=== PATIENT | female | born 1990 | race Hispanic/Latino ===

== ENCOUNTER 2018-05-24 12:47 | Emergency (ER) | payer OTHER ==
[2018-05-24 13:23] VITALS: RESP 18; TEMP 98.7; O2SAT 99
[2018-05-24 13:33] VITALS: BMI 28.3
--- NOTE | 2018-05-24 13:42 | ED PDOC ---
Arrival/HPI - General Historian: Patient - History of Present Illness Narrative History of Present Illness (Text): 05/24/18 13:32 28 y o female no remarkable past medical hx presents to the ED c/o sore throat. States she has has symptoms for the past 6 days; states she went to her daughter's thread spinner yesterday, was diagnosed with strep throat and given Augmentin for treatment. States she also has been taking ibuprofen for her sore throat which helps with symptoms. Pt states she is unable to swallow the pills due to her sore throat pain. States she is unable to tolerate swallowing PO foods and liquids. Denies fever, chills, ear pain, nasal congestion, chest pain, sob, cough, n/v/d/c, abd pain, urinary complaints, or other symptoms. PMhx: denies PSurgHx: denies Allergies: NKDA Home meds: none Fam hx: denies Soc hx: denies smoking, EtOH or illicit drug use PMD: none; pt states she has no insurance Time/Duration: Other (6 days) Symptom Onset: Gradual Symptom Course: Worsening Quality: Throbbing Severity Level: 8 Activities at Onset: Rest, Light Context: Home <Elias Sheridan - Last Filed: 05/24/18 14:57> <Romario Aviles Y - Last Filed: 05/25/18 12:11> - General Chief Complaint: ENT Problem Past Medical History - Provider Review Nursing Documentation Reviewed: Yes - Travel History Have you recently traveled outside [place] w/in the past 3 mons?: No - Past History Past History: No Previous - Infectious Disease Hx of Infectious Diseases: None - Tetanus Immunization Tetanus Immunization: Unknown - Past Medical History Past Medical History: No Previous - Psychiatric Hx Substance Use: No - Past Surgical History Past Surgical History: No Previous - Suicidal Assessment Feels Threatened In Home Enviroment: No <Elias Sheridan - Last Filed: 05/24/18 14:57> Family/Social History - Physician Review Nursing Documentation Reviewed: Yes Family/Social History: No Known Family HX Smoking Status: Never Smoked Hx Alcohol Use: No Hx Substance Use: No Hx Substance Use Treatment: No <Elias Sheridan - Last Filed: 05/24/18 14:57> Allergies/Home Meds <Elias Sheridan - Last Filed: 05/24/18 14:57> <Romario Aviles Y - Last Filed: 05/25/18 12:11> Allergies/Adverse Reactions: Allergies No Known Allergies Allergy (Verified 05/24/18 13:33) Home Medications: Home Meds Medication Instructions Recorded Confirmed Contol Pills 1 tab PO DAILY 08/27/14 08/27/14 Review of Systems - Physician Review All systems were reviewed & negative as marked: Yes - Review of Systems Constitutional: absent: Fatigue, Weight Change, Fevers, Night Sweats Eyes: absent: Vision Changes ENT: Sore Throat. absent: Tinnitus, Rhinorrhea, Sinus Congestion Respiratory: absent: SOB, Cough, Sputum Cardiovascular: absent: Chest Pain, Palpitations, Edema, MAK Gastrointestinal: absent: Abdominal Pain, Stool Changes, Constipation, Diarrhea, Nausea, Vomiting Musculoskeletal: Arthralgias, Myalgias Skin: absent: Rash Neurological: absent: Headache Endocrine: absent: Diaphoresis Hemo/Lymphatic: Adenopathy <FatimahElias - Last Filed: 05/24/18 14:57> Physical Exam Vital Signs Reviewed: Yes Vital Signs Temp Pulse Resp BP Pulse Ox 05/24/18 12:47 98.7 F 100 H 18 122/69 99 Temperature: Afebrile Blood Pressure: Normal Pulse: Tachycardic Respiratory Rate: Normal Appearance: Positive for: Well-Appearing, Non-Toxic, Comfortable Pain Distress: Mild Mental Status: Positive for: Alert and Oriented X 3 - Systems Exam Head: Present: Atraumatic, Normocephalic Pupils: Present: PERRL Extroacular Muscles: Present: EOMI Conjunctiva: Present: Normal Ears: Present: NORMAL TM. No: Erythema Mouth: Present: Moist Mucous Membranes Pharnyx: Present: ERYTHEMA, EXUDATE. No: Muffled/Hoarse Voice Nose (Internal): Present: Normal Inspection. No: Rhinorrhea Neck: Present: Normal Range of Motion. No: JVD, Lymphadenopathy Respiratory/Chest: Present: Clear to Auscultation, Good Air Exchange. No: Respiratory Distress, Accessory Muscle Use, Wheezes, Rales, Rhonchi Cardiovascular: Present: Regular Rate and Rhythm, Normal S1, S2. No: Murmurs, Rub, Gallop Abdomen: Present: Normal Bowel Sounds. No: Tenderness, Distention, Guarding, Mass/Organomegaly Upper Extremity: Present: Normal Inspection, Normal ROM, NORMAL PULSES, Neurovascularly Intact, Capillary Refill < 2s. No: Cyanosis, Edema Lower Extremity: Present: Normal Inspection, NORMAL PULSES, Normal ROM, Neurovascularly Intact, Capillary Refill < 2 s. No: Edema Neurological: Present: GCS=15, CN II-XII Intact, Speech Normal, Motor Func Grossly Intact, Normal Sensory Function Skin: Present: Warm, Dry, Normal Color. No: Rashes Lymphatic: Present: Cervical Adenopathy Psychiatric: Present: Alert, Oriented x 3, Normal Insight, Normal Concentration <Elias Sheridan - Last Filed: 05/24/18 14:57> Vital Signs Temp Pulse Resp BP Pulse Ox 05/24/18 12:47 98.7 F 100 H 18 122/69 99 <Romario Aviles - Last Filed: 05/25/18 12:11> Medical Decision Making ED Course and Treatment: 05/24/18 13:47 28 y o female presents with sore throat, recent hx of being dx with strep throat yesterday, unable to tolerate swallowing Augmentin pills. Plan: -Urine test: neg -Bicillin x1 -Toradol x1 -Decadron x1 Will continue to monitor. 05/24/18 14:57 Reassessed pt, states she is feeling a little better s/p medications. Plan to discharge to home at this time. Advised to drink plenty of PO fluids at home. Instructed to establish care with [facility] within 2-3 days of ER discharge to follow-up on strep throat. Advised to return to the ED if her symptoms recur or worsen. All questions and concerns addressed with pt and she is agreeable to plan. <Elias Sheridan - Last Filed: 05/24/18 14:57> ED Course and Treatment: note-pt seen with resident. pt has swelling of the R tonsil w exudates. pt took augmentin yesterday but trouble swallowing. no trismus, drooling, shortness of breath. pt speaking in full sentences. will give toradol, steroids and im bicillin and out pt follow up. pt agreeable to plan. 05/24/18 14:27 Patient Seen with Resident: In agreement with resident note which contains more details about the patient. Patient seen and evaluated with resident. Came up with plan and treatment together. Impression: 28 year old female who presents to the emergency department complaining of sore throat. 05/25/18 12:09 - Medication Orders Current Medication Orders: Discontinued Medications Dexamethasone (Decadron Inj) 10 mg IVP STAT STA Stop: 05/24/18 14:12 Ketorolac Tromethamine (Toradol) 30 mg IVP STAT STA Stop: 05/24/18 14:12 Penicillin G Benzathine (Bicillin L-A Inj) 1,200,000 units IM STAT STA; Protocol Stop: 05/24/18 14:11 <Romario Aviles - Last Filed: 05/25/18 12:11> - Scribe Statement The provider has reviewed the documentation as recorded by the Char Sanchez Provider Scribe Attestation: All medical record entries made by the Scribe were at my direction and personally dictated by me. I have reviewed the chart and agree that the record accurately reflects my personal performance of the history, physical exam, medical decision making, and the department course for this patient. I have also personally directed, reviewed, and agree with the discharge instructions and disposition. <Romario Aviles Y - Last Filed: 05/25/18 12:11> Disposition/Present on Arrival - Present on Arrival Any Indicators Present on Arrival: No History of DVT/PE: No History of Uncontrolled Diabetes: No Urinary Catheter: No History Surgical Site Infection Following: None - Disposition Have Diagnosis and Disposition been Completed?: Yes Disposition Time: 15:01 Patient Plan: Discharge <Elias Sheridan - Last Filed: 05/24/18 14:57> <Romario Aviles Y - Last Filed: 05/25/18 12:11> - Disposition Diagnosis: Strep throat Disposition: HOME/ ROUTINE Condition: IMPROVED Discharge Instructions (ExitCare): Strep Throat (DC) Print Language: STATELESS Additional Instructions: Please follow up at the [facility] (Dr. Mckeon) within 2-3 days of hospital discharge. Please drink plenty of fluids at home. Should your symptoms recur or worsen, please call your primary care physician or report back to your nearest emergency department. Referrals: Brisa Mckeon MD [Medical Doctor] - Follow up with primary Forms: [facility] ([place]) Attending/Attestation - Attestation I have personally seen and examined this patient.: Yes I have fully participated in the care of the patient.: Yes I have reviewed all pertinent clinical information, including history, physical exam and plan: Yes <Romario Aviles - Last Filed: 05/25/18 12:11>
[2018-05-24] MEDS ORDERED: Penicillin G Benzathine 1.2 Mill Unit/2 ml Syr IM STA (14:10)
[2018-05-24 15:11] VITALS: BP 120/71; PULSE 89
== END 2018-05-24 15:21 | disposition home or self-care (01) ==
LOC: ED 12:47
DX: J02.0 Streptococcal pharyngitis (principal)
CPT/HCPCS: 96372; 96374; 96375; 99283; J0561; J1100; J1885

== ENCOUNTER 2018-06-04 14:16 | Emergency (ER) | payer OTHER ==
[2018-06-04 14:17] VITALS: BMI 28.3
[2018-06-04 14:45] VITALS: RESP 18
--- NOTE | 2018-06-04 16:47 | ED PDOC ---
Arrival/HPI - General Chief Complaint: Trauma Time Seen by Provider: 06/04/18 14:54 Historian: Patient - History of Present Illness Narrative History of Present Illness (Text): 06/04/18 16:42 28yo female with no pmhx who present with complaint of left sided upper and lower back pain s/p trauma yesterday. States she fell while at work yesterday and while trying to break her fall, she landed on the left side. States pain started when she woke up this morning. Describes pain as stinging, constant and worse with movement. Did not take any analgesic. denies focal weakness, urinary/fecal incontinence, saddle anesthesia, abdominal pain, hematuria, abdominal pain, LOC, any other complaint. Past Medical History - Provider Review Nursing Documentation Reviewed: Yes - Past History Past History: No Previous - Infectious Disease Hx of Infectious Diseases: None - Tetanus Immunization Tetanus Immunization: Unknown - Reproductive Menopause: No - Past Medical History Past Medical History: No Previous - Psychiatric Hx Substance Use: No - Past Surgical History Past Surgical History: No Previous - Surgical History Other/Comment: 2010 and 2013 - Suicidal Assessment Feels Threatened In Home Enviroment: No Family/Social History - Physician Review Nursing Documentation Reviewed: Yes Family/Social History: Unknown Family HX Smoking Status: Never Smoked Hx Alcohol Use: No Hx Substance Use: No Hx Substance Use Treatment: No Allergies/Home Meds Allergies/Adverse Reactions: Allergies No Known Allergies Allergy (Verified 05/24/18 13:33) Home Medications: Home Meds Medication Instructions Recorded Confirmed Contol Pills 1 tab PO DAILY 08/27/14 08/27/14 Review of Systems - Physician Review All systems were reviewed & negative as marked: Yes - Review of Systems Constitutional: Normal Eyes: Normal ENT: Normal Respiratory: Normal Cardiovascular: Normal Gastrointestinal: Normal Genitourinary Female: Normal Musculoskeletal: Back Pain Skin: Normal Neurological: Normal Endocrine: Normal Hemo/Lymphatic: Normal Psychiatric: Normal Physical Exam Vital Signs Reviewed: Yes Vital Signs Temp Pulse Resp BP Pulse Ox 06/04/18 15:30 98.1 F 90 18 123/78 99 06/04/18 14:42 99.3 F 94 H 18 132/84 96 Temperature: Afebrile Blood Pressure: Normal Pulse: Regular Respiratory Rate: Normal Appearance: Positive for: Well-Appearing, Non-Toxic, Comfortable Pain Distress: None Mental Status: Positive for: Alert and Oriented X 3 - Systems Exam Head: Present: Atraumatic, Normocephalic Pupils: Present: PERRL Extroacular Muscles: Present: EOMI Conjunctiva: Present: Normal Mouth: Present: Moist Mucous Membranes Neck: Present: Normal Range of Motion Respiratory/Chest: Present: Clear to Auscultation, Good Air Exchange. No: Respiratory Distress, Accessory Muscle Use Cardiovascular: Present: Regular Rate and Rhythm, Normal S1, S2. No: Murmurs Abdomen: No: Tenderness, Distention, Peritoneal Signs Back: Present: Paraspinal Tenderness (Left sided paraspinous/thoracic tenderness), Pain with Leg Raise (Right leg). No: Midline Tenderness Upper Extremity: Present: Normal Inspection. No: Cyanosis, Edema Lower Extremity: Present: Normal Inspection. No: Edema Neurological: Present: GCS=15, CN II-XII Intact, Speech Normal Skin: Present: Warm, Dry, Normal Color. No: Rashes Psychiatric: Present: Alert, Oriented x 3, Normal Insight, Normal Concentration Medical Decision Making ED Course and Treatment: 06/04/18 18:36 28yo female in ED for back pain s/p trauma. She was ambulatory in ED and neurologically intact LS xray IMPRESSION: Unremarkable radiographs of the lumbar spine. Thoracic spine IMPRESSION: Normal radiographs of the thoracic spine. Toradol and flexeril for pain control Result was DW the pt and she shew as DC home with ibuprofen/flexeril. referred to her PMD. - RAD Interpretation Radiology Orders: 06/04/18 15:52 DORSAL (THORACIC) SPINE [RAD] Stat LS SPINE WITH OBL > 18 YRS OLD [RAD] Stat - Medication Orders Current Medication Orders: Discontinued Medications Cyclobenzaprine HCl (Flexeril) 10 mg PO STAT STA Stop: 06/04/18 15:57 Ketorolac Tromethamine (Toradol) 60 mg IM STAT STA Stop: 06/04/18 15:57 Disposition/Present on Arrival - Present on Arrival Any Indicators Present on Arrival: No History of DVT/PE: No History of Uncontrolled Diabetes: No Urinary Catheter: No History of Decub. Ulcer: No History Surgical Site Infection Following: None - Disposition Have Diagnosis and Disposition been Completed?: Yes Diagnosis: Back pain Disposition: HOME/ ROUTINE Disposition Time: 16:50 Patient Plan: Discharge Condition: STABLE Discharge Instructions (ExitCare): Upper Back Pain Additional Instructions: Follow up with your doctor/orthopedist apply warm compress/shower to area and rest Return to ED for any new or worsening symptoms Prescriptions: Cyclobenzaprine [Cyclobenzaprine HCl] 10 mg PO TID #12 tab RX: Ibuprofen [Motrin Tab] 600 mg PO Q6 #20 tab Referrals: Henri Harrison DO [Staff Provider] - Follow up with primary Forms: [facility] (Bengali), WORK NOTE
--- NOTE | 2018-06-04 17:17 | RAD ---
Date of service: 06/04/2018 HISTORY: back pain COMPARISON: No prior. FINDINGS: BONES: Alignment maintained. No fracture. DISC SPACES: Normal. SOFT TISSUES: Normal. OTHER FINDINGS: None. IMPRESSION: Normal radiographs of the thoracic spine.
--- NOTE | 2018-06-04 17:18 | RAD ---
Date of service: 06/04/2018 PROCEDURE: Radiographs of the Lumbar Spine. HISTORY: back pain COMPARISON: No prior. FINDINGS: BONES: Normal alignment. No listhesis. No fracture. DISC SPACES: Unremarkable. OTHER FINDINGS: Intrauterine contraceptive device (IUD) identified IMPRESSION: Unremarkable radiographs of the lumbar spine.
[2018-06-04 17:27] VITALS: BP 128/89; PULSE 89; TEMP 98; O2SAT 100
== END 2018-06-04 17:32 | disposition home or self-care (01) ==
LOC: ED 14:16
DX: M54.6 Pain in thoracic spine (principal)
CPT/HCPCS: 72070; 72110; 96372; 99284; J1885